=== PATIENT | male | born 1985 | race Caucasian/White ===

== ENCOUNTER 2016-12-17 09:30 | Emergency (ER) | payer MEDICAID ==
[2016-12-17] MEDS ORDERED: ORPHENADRINE 60 MG/2 ML AMP ONE (12:16)
[2016-12-17] MEDS ORDERED: PREDNISONE 10 MG TAB ONE (12:16)
== END 2016-12-17 13:15 | disposition home or self-care (01) ==
LOC: ER 09:30
DX: S39.012A Strain of muscle, fascia and tendon of lower back, initial encounter (principal); X50.9XXA Other and unspecified overexertion or strenuous movements or postures, initial encounter
CPT/HCPCS: 72100; 96372